=== PATIENT | male | born 1980 | race African-American/Black ===

== ENCOUNTER 2016-08-04 10:46 | Emergency (ER) | payer SELFPAY ==
[~2016-08-04] VITALS: Ht 182.9 cm; Wt 93.0 kg
[~2016-08-04 10:46] MED LIST: CHLO15MO2 PO; CYCL10TA2 PO; HYDR-79 PO; HYDR1TAB10 PO; IBUP200T43 PO; IBUP800T PO; LISI40TA PO; PENI250T2 PO; PENI500T PO; TRAM-29 PO; TRAM50TA PO
[2016-08-04 10:56] VITALS: BP 160/109
--- NOTE | 2016-08-04 16:42 | ED.ADGEN ---
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 Patient denies motor weakness loss of sensation. Review of Systems Review of Systems Review symptoms as prescribed. Allergies Allergies Allergies Coded Allergies Type Severity Reaction Last Updated Verified No Known Drug Allergies 01/01/15 No Physical Exam Physical Exam Constitutional: Well developed, well nourished, no acute distress, non-toxic appearance. [] HENT: Normocephalic, atraumatic, bilateral external ears normal, oropharynx moist, no oral exudates, nose normal. [] Eyes: PERRLA, EOMI, conjunctiva normal, no discharge. [] Neck: Normal range of motion, no tenderness, supple, no stridor. [] Cardiovascular:Heart rate regular rhythm, no murmur [] Lungs & Thorax: Bilateral breath sounds clear to auscultation [] Abdomen: Bowel sounds normal, soft, no tenderness, no masses, no pulsatile masses. [] Skin: Warm, dry, no erythema, no rash. [] Back: No midline Tenderness, bilateral paravertebral lower back pain, tenderness. Extremities: No tenderness, no cyanosis, no clubbing, ROM intact, no edema. [] Neurologic: Alert and oriented X 3, normal motor function, normal sensory function, no focal deficits noted. [] Psychologic: Affect normal, judgement normal, mood normal. [] Current Patient Data Vital Signs Vital Signs Date Time Temp Pulse Resp B/P Pulse Ox O2 Delivery O2 Flow Rate FiO2 08/04/16 10:56 97.9 102 20 99 Room Air EKG EKG [] Radiology/Procedures Radiology/Procedures [] Impressions: Exacerbation of chronic back pain Course & Med Decision Making Course & Med Decision Making Pertinent Labs and Imaging studies reviewed. (See chart for details) Courtesy work note provided. Blood pressure noted to be elevated 166/112. Patient does not take blood pressure today. No CP, SOB, leg swelling. ] Final Impression Final Impression 1. Acute exacerbation of chronic back pain 2. Hypertension 3. Medical non-compliance Problems: Dragon Disclaimer Dragon Disclaimer This electronic medical record was generated, in whole or in part, using a voice recognition dictation system. ZACH VALDEZ DO Aug 04, 2016 16:42
== END 2016-08-04 11:10 | disposition home or self-care (01) ==
LOC: ER 10:46
DX: G89.29 Other chronic pain (principal); M54.89 Other dorsalgia; I10 Essential (primary) hypertension; Z91.14 Patient's other noncompliance with medication regimen
CPT/HCPCS: 99281

== ENCOUNTER 2017-04-01 22:05 | Emergency (ER) | payer OTHER ==
[~2017-04-01] VITALS: Ht 182.9 cm; Wt 89.8 kg
[2017-04-01 22:05] VITALS: BP 171/111
[~2017-04-01 22:05] MED LIST changes: +CYCL-331 PO; -CYCL10TA2 PO; -IBUP800T PO; +IBUP800T19 PO; -PENI250T2 PO; +PENI250T85 PO; -TRAM-29 PO; +TRAM-48 PO
[2017-04-01] MEDS ORDERED: TRAM50TA PO (22:40)
[2017-04-01] MEDS ORDERED: METH-38 PO (22:40)
[2017-04-01] MEDS ORDERED: KETOROLAC 60 MG/2 ML VIAL. IM ONE (22:45)
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
== END 2017-04-01 22:45 | disposition home or self-care (01) ==
LOC: ER 22:05
DX: S33.5XXA Sprain of ligaments of lumbar spine, initial encounter (principal); S46.812A Strain of other muscles, fascia and tendons at shoulder and upper arm level, left arm, initial encounter; S43.492A Other sprain of left shoulder joint, initial encounter; I10 Essential (primary) hypertension; W22.8XXA Striking against or struck by other objects, initial encounter; Y93.89 Activity, other specified; Y99.8 Other external cause status; Y92.89 Other specified places as the place of occurrence of the external cause
CPT/HCPCS: 96372; 99283; J1885

== ENCOUNTER 2017-09-20 20:15 | Emergency (ER) | payer SELFPAY ==
[~2017-09-20] VITALS: Ht 182.9 cm; Wt 89.8 kg
[2017-09-20 20:15] VITALS: BP 172/109
[~2017-09-20 20:15] MED LIST changes: -IBUP200T43 PO; +IBUP200T44 PO; +METH-38 PO
--- NOTE | 2017-09-20 21:04 | PHYS DOC ---
Past History Past Medical History: Hypertension Additional Past Medical Histor: back pain Past Surgical History: Other Smoking: Non-smoker Alcohol Use: None Drug Use: None Adult General Chief Complaint Chief Complaint: SHOULDER INJURY HPI HPI 36-year-old male now presents emergency department complaining of left shoulder pain. He was lifting weights and strained his shoulder. He is concerned he may have a rotator cuff injury. No collarbone pain or tenderness or pain at the before meals distribution. Patient is able to use his elbow and wrist normally. No prior injury to the shoulder. Soft tissue tenderness Review of Systems Review of Systems Constitutional: Denies fever or chills [] Eyes: Denies change in visual acuity, redness, or eye pain [] HENT: Denies nasal congestion or sore throat [] Respiratory: Denies cough or shortness of breath [] Cardiovascular: No additional information not addressed in HPI [] GI: Denies abdominal pain, nausea, vomiting, bloody stools or diarrhea [] : Denies dysuria or hematuria [] Musculoskeletal: Denies back pain or joint pain [] Integument: Denies rash or skin lesions [] Neurologic: Denies headache, focal weakness or sensory changes [] Endocrine: Denies polyuria or polydipsia [] All other systems were reviewed and found to be within normal limits, except as documented in this note. Allergies Allergies Allergies Coded Allergies Type Severity Reaction Last Updated Verified codeine Allergy Intermediate 04/01/17 Yes Physical Exam Physical Exam Well-appearing patient no acute distress. No bony tenderness of left upper extremity. Soft tissue tenderness at left shoulder consistent with rotator cuff injury. Neurovascularly intact extremity with soft compartments Constitutional: Well developed, well nourished, no acute distress, non-toxic appearance. [] HENT: Normocephalic, atraumatic, bilateral external ears normal, oropharynx moist, no oral exudates, nose normal. [] Eyes: EOMI, conjunctiva normal, no discharge. [] Neck: Normal range of motion, no tenderness, supple, no stridor. [] Cardiovascular: No tachycardia Lungs & Thorax: Normal respiratory rate with no asymmetry of the chest wall excursion and no increased work of breathing Abdomen: Nondistended abdomen Skin: Warm, dry, no erythema, no rash. [] Back: Normal supple appearing neck Extremities: no cyanosis, no clubbing, ROM intact, no edema. [] Neurologic: Alert and oriented X 3, normal motor function, normal sensory function, no focal deficits noted. [] Psychologic: Affect normal, judgement normal, mood normal. [] Current Patient Data Vital Signs Vital Signs Date Time Temp Pulse Resp B/P (MAP) Pulse Ox O2 Delivery O2 Flow Rate FiO2 09/20/17 20:15 98.0 121 20 100 Room Air EKG EKG [] Radiology/Procedures Radiology/Procedures X-ray left shoulder unremarkable interpreted by me[] Course & Med Decision Making Course & Med Decision Making Pertinent Labs and Imaging studies reviewed. (See chart for details) Signs and symptoms consistent with rotator cuff injury. Sling applied. NSAIDs administered. Patient were to ice and avoid strenuous activity until follow-up with his doctor for reevaluation and referral to orthopedics and for MRI as needed. No further workup or treatment indicated at this time patient agrees with outpatient follow-up and strict return precautions given [] Dragon Disclaimer Dragon Disclaimer This electronic medical record was generated, in whole or in part, using a voice recognition dictation system. Departure Departure: Impression: Primary Impression: Injury of left rotator cuff Additional Impression: Shoulder pain, left Disposition: HOME, SELF-CARE Condition: GOOD Referrals: NON,STAFF (PCP) Patient Instructions: Rotator Cuff Injury Additional Instructions: It appears that you have suffered a rotator cuff injury of your left shoulder. Wear sling as needed for comfort but try to use her arm for light activity. Remove the sling to do gentle range of motion exercises multiple times a day. Over the next day or 2 apply ice as often as possible. Take ibuprofen 800 mg every 6 hours and Ultram one pill every 6 hours as needed for pain unrelieved by ibuprofen. Follow-up with your doctor in 5-7 days for reevaluation and referral for MRI and orthopedic referral if your symptoms persist and your doctor feels this is indicated. Problem Qualifiers FABIO ORTEGA MD September 20, 2017 21:04
[2017-09-20] MEDS ORDERED: START PACK - traMADol 1 STARTPACK TABLET PO ONE (21:15)
--- NOTE | 2017-09-21 08:00 | RAD ---
SHOULDER 2+V LEFT History: Injury Comparison: May 27, 2016 Findings: 3 views left shoulder submitted. No acute fracture or dislocation is identified. Impression: 1. No acute osseous abnormality is identified by radiographs. Electronically signed by: Naeem Dow MD (09/21/2017 7:57 AM) [id number]
== END 2017-09-20 21:17 | disposition home or self-care (01) ==
LOC: ER 20:15
DX: S46.092A Other injury of muscle(s) and tendon(s) of the rotator cuff of left shoulder, initial encounter (principal); I10 Essential (primary) hypertension; Z88.5 Allergy status to narcotic agent; X58.XXXA Exposure to other specified factors, initial encounter; Y93.89 Activity, other specified; Y99.8 Other external cause status; Y92.89 Other specified places as the place of occurrence of the external cause
CPT/HCPCS: 73030; 99284

== ENCOUNTER 2018-01-06 14:48 | Emergency (ER) | payer SELFPAY ==
[~2018-01-06] VITALS: Ht 182.9 cm; Wt 89.8 kg
--- NOTE | 2018-01-06 15:16 | PHYS DOC ---
Past History Past Medical History: Hypertension Additional Past Medical Histor: back pain Past Surgical History: Other Smoking: Non-smoker Alcohol Use: None Drug Use: None Adult General Chief Complaint Chief Complaint: KNEE INJURY HPI HPI Patient is a 37 year old who presents complaining of right knee injury. Patient states he was playing football and twisted his knee and felt pop in right knee with severe pain in his knee. Patient states the pain is 8/10 with rest and 10 over 10 with movement of his knee. Patient denies other injuries, focal neuro deficit, history of any problem. Review of Systems Review of Systems Constitutional: Denies fever or chills [] Eyes: Denies change in visual acuity, redness, or eye pain [] HENT: Denies nasal congestion or sore throat [] Respiratory: Denies cough or shortness of breath [] Cardiovascular: No additional information not addressed in HPI [] GI: Denies abdominal pain, nausea, vomiting, bloody stools or diarrhea [] : Denies dysuria or hematuria [] Musculoskeletal: Denies back pain, reports joint pain [] Integument: Denies rash or skin lesions [] Neurologic: Denies headache, focal weakness or sensory changes [] Endocrine: Denies polyuria or polydipsia [] All other systems were reviewed and found to be within normal limits, except as documented in this note. Current Medications Current Medications Current Medications Medications (Trade) Dose Ordered Sig/Sebastián Start Time Stop Time Status Last Admin Dose Admin Tramadol HCl (Ultram) 50 mg 1X ONCE 01/06/18 15:15 01/06/18 15:16 UNV Allergies Allergies Allergies Coded Allergies Type Severity Reaction Last Updated Verified codeine Allergy Intermediate 04/01/17 Yes Physical Exam Physical Exam Constitutional: Well developed, well nourished, mild distress, non-toxic appearance. [] HENT: Normocephalic, atraumatic Eyes: PERRLA, EOMI, conjunctiva normal, no discharge. [] Neck: Normal range of motion, no tenderness, supple, no stridor. [] Cardiovascular:Heart rate regular rhythm, no murmur [] Lungs & Thorax: Bilateral breath sounds clear to auscultation [] Skin: Warm, dry, no erythema, no rash. [] Back: No tenderness, no CVA tenderness. [] Extremities: Right knee without deformity or edema, tenderness in anterior side of knee with limited range of motion secondary to pain Neurologic: Alert and oriented X 3, normal motor function, normal sensory function, no focal deficits noted. [] Psychologic: Affect normal, judgement normal, mood normal. [] EKG EKG [] Radiology/Procedures Radiology/Procedures [][address] [id number] IMAGING REPORT Signed PATIENT: ÓSCAR MILAN ACCOUNT: [id number] : 1980 LOCATION: ER AGE: 37 SEX: M EXAM STATUS: REG ER ORD. PHYSICIAN: JUAN MANUEL CASTILLO MD REASON: injury PROCEDURE: KNEE RIGHT 4V History: Right lateral knee pain and swelling after injury today. Comparison: January 01, 2015. Findings: AP, lateral, oblique, and merchant views of the right knee. No acute fracture or dislocation is identified. 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 No joint effusion is identified. Impression: 1. No acute osseous traumatic injury identified. 2. Mild tricompartment degeneration. Electronically signed by: Jabari Elizabeth MD (01/06/2018 3:25 PM) [id number] DICTATED AND SIGNED BY: JABARI ELIZABETH MD DATE: 01/06/18 1524 CC: JUAN MANUEL CASTILLO MD; NON,STAFF ~ Course & Med Decision Making Course & Med Decision Making discharge: I've spoken with the patient and/or caregivers. I've explained the patient's condition, diagnosis and treatment plan based on information available to me at this time. I've answered the patient's and/or caregivers questions and addressed any concerns. The patient and/or caregivers have a good understanding the patient's diagnosis, condition and treatment plan as can be expected at this point. Vital signs have been stabilized. The patient's condition is stable for discharge from the emergency department. The patient will pursue further outpatient evaluation with her primary care provider or other designated consulting physician as outlined in the discharge instructions. Patient and/or caregivers are agreeable to this plan of care and follow-up instructions have been explained in detail. The patient and/or caregivers have received these instructions in written format and expressed understanding of these discharge instructions. The patient and her caregivers are aware that if any significant change in condition or worsening of symptoms should prompt him to immediately return to this of the closest emergency department. If an emergent department is not readily available I would encourage him to call 911. Elian Disclaimer Elian Disclaimer This electronic medical record was generated, in whole or in part, using a voice recognition dictation system. Departure Departure: Impression: Primary Impression: Right knee sprain Additional Impression: Uncontrolled hypertension Disposition: HOME, SELF-CARE (at 1555) Condition: STABLE Referrals: NON,STAFF (PCP) Patient Instructions: Hypertension, Knee Sprain Additional Instructions: Apply ice on the affected area Follow-up with your primary care physician in 3-5 days Return to ER if not getting better Scripts Ibuprofen (IBUPROFEN) 800 Mg Tablet 800 MG PO TID, #20 TAB Prov: JUAN MANUEL CASTILLO MD 01/06/18 Problem Qualifiers JUAN MANUEL CASTILLO MD Jan 06, 2018 15:16
--- NOTE | 2018-01-06 15:29 | RAD ---
History: Right lateral knee pain and swelling after injury today. Comparison: January 01, 2015. Findings: AP, lateral, oblique, and merchant views of the right knee. No acute fracture or dislocation is identified. 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 No joint effusion is identified. Impression: 1. No acute osseous traumatic injury identified. 2. Mild tricompartment degeneration. Electronically signed by: Jabari Elizabeth MD (01/06/2018 3:25 PM) [facility]
[2018-01-06] MEDS ORDERED: traMADol 50 MG TABLET PO ONE (15:30)
[2018-01-06] MEDS ORDERED: IBUP800T19 PO (15:36)
[2018-01-06 15:40] VITALS: BP 163/110
== END 2018-01-06 15:47 | disposition home or self-care (01) ==
LOC: ER 14:48
DX: S83.91XA Sprain of unspecified site of right knee, initial encounter (principal); I10 Essential (primary) hypertension; Z88.5 Allergy status to narcotic agent; X50.1XXA Overexertion from prolonged static or awkward postures, initial encounter; Y93.61 Activity, american tackle football; Y92.89 Other specified places as the place of occurrence of the external cause; Y99.8 Other external cause status
CPT/HCPCS: 73564; 99284

== ENCOUNTER 2018-12-05 18:27 | Emergency (ER) | payer SELFPAY ==
[~2018-12-05 18:27] MED LIST changes: +HYDR-1179 PO; -HYDR-79 PO
[2018-12-05] MEDS ORDERED: ACETAMINOPHEN 500 MG TABLET PO ONE (18:45)
[2018-12-05] MEDS ORDERED: CYCLOBENZAPRINE 10 MG TABLET. PO ONE (19:30)
[2018-12-05] MEDS ORDERED: IBUP600T16 PO (19:31)
[2018-12-05] MEDS ORDERED: CYCL-331 PO (19:31)
--- NOTE | 2018-12-05 19:31 | PHYS DOC ---
Past History Past Medical History: Hypertension Additional Past Medical Histor: back pain Past Surgical History: Other Smoking: Non-smoker Alcohol Use: None Drug Use: None Adult General Chief Complaint Chief Complaint: SHOULDER INJURY HPI HPI Patient is a 38 year old male who presents with complaint of left shoulder pain. The patient states that he was playing football when the injury occurred approximately 2-1/2 hours prior to arrival. The patient states that during a play, one of his teammates fumbled football. As he was trying to get to the ball, a defender came through and ran through his left arm as it was outstretched. This caused his arm to stretch posterior and a sudden violent motion. He states that he felt a tearing sensation to his left anterior shoulder and left upper chest. States that since the injury he has not been able to move much at the shoulder secondary to pain in the left upper chest and anterior shoulder. Denies any other injuries. States he took Motrin prior to arrival with not much relief in symptoms. States that he does feel a popping sensation when he attempts to move the left shoulder. Review of Systems Review of Systems Constitutional: Denies fever or chills [] Eyes: Denies change in visual acuity, redness, or eye pain [] HENT: Denies nasal congestion or sore throat [] Respiratory: Denies cough or shortness of breath [] Cardiovascular: Denies substernal chest pain or edema[] GI: Denies abdominal pain, nausea, vomiting, bloody stools or diarrhea [] : Denies dysuria or hematuria [] Musculoskeletal: Left shoulder pain, left pectoral pain[] Integument: Denies rash or skin lesions [] Neurologic: Denies headache, focal weakness or sensory changes [] All other systems were reviewed and found to be within normal limits, except as documented in this note. Current Medications Current Medications Current Medications Medications (Trade) Dose Ordered Sig/[facility] Start Time Stop Time Status Last Admin Dose Admin Acetaminophen (Tylenol) 1,000 mg 1X ONCE 12/05/18 18:45 12/05/18 18:49 DC 12/05/18 18:45 1,000 MG Allergies Allergies Allergies Coded Allergies Type Severity Reaction Last Updated Verified codeine Allergy Intermediate 04/01/17 Yes Physical Exam Physical Exam Constitutional: Alert, afebrile, appears in [id number] discomfort. [] HENT: Normocephalic, atraumatic, bilateral external ears normal, oropharynx moist, no oral exudates, nose normal. [] Eyes: PERRLA, EOMI, conjunctiva normal, no discharge. [] Neck: Normal range of motion, no tenderness, supple, no stridor. [] Cardiovascular:Heart rate regular rhythm, no murmur [] Lungs & Thorax: Bilateral breath sounds clear to auscultation [] Abdomen: Bowel sounds normal, soft, no tenderness, no masses, no pulsatile masses. [] Skin: Warm, dry, no erythema, no rash. [] Back: No tenderness, no CVA tenderness. [] Extremities: There is palpation along soft tissue anterior shoulder and along superior lateral portion of left pectoral muscle at both pectoralis major and pectoralis minor, patient's left upper extremity held abducted and internally rotated, pain with attempted passive adduction and external rotation no cyanosis, no clubbing, left elbow and forearm exam is normal. [] Neurologic: Alert and oriented X 3, normal motor function, normal sensory function, no focal deficits noted. [] Current Patient Data Vital Signs Vital Signs Date Time Temp Pulse Resp B/P (MAP) Pulse Ox O2 Delivery O2 Flow Rate FiO2 12/05/18 18:35 98.2 109 18 99 Room Air Lab Results Not performed EKG EKG Not performed[] Radiology/Procedures Radiology/Procedures 3 view left shoulder x-ray interpreted by me: No fractures, normal alignment, normal soft tissue[] Course & Med Decision Making Course & Med Decision Making Pertinent Labs and Imaging studies reviewed. (See chart for details) X-rays negative for fracture. I suspect rotator cuff injury as well as pectoralis muscle strain. Patient placed in left shoulder sling in the em ergency department. Treated with Tylenol and Flexeril. Prescribed ibuprofen and Flexeril for continued treatment at home. 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 Patient also provided with orthopedic surgery referral through [facility]. Advised follow-up within recommended timeframe of 1 week and return to the emergency department for any worsening symptoms. Patient was understanding and in agreement with treatment plan.[] Dragon Disclaimer Dragon Disclaimer This electronic medical record was generated, in whole or in part, using a voice recognition dictation system. Departure Departure: Impression: Primary Impression: Shoulder injury Additional Impression: Pectoralis muscle strain Disposition: HOME, SELF-CARE Condition: STABLE Referrals: Aubrey Verdin II, MD PCP,NO (PCP) Patient Instructions: Muscle Strain, Shoulder Pain Additional Instructions: Follow-up with orthopedic surgery in one week for reevaluation. Return to the emergency department for any worsening symptoms. Scripts Ibuprofen (IBUPROFEN) 600 Mg Tablet 600 MG PO Q6HRS PRN for PAIN, #30 TAB Prov: NELIDA BROWN MD 12/05/18 Cyclobenzaprine Hcl (CYCLOBENZAPRINE HCL) 10 Mg Tablet 1 TAB PO TID PRN for MUSCLE SPASMS, #30 TAB Prov: NELIDA BROWN MD 12/05/18 Problem Qualifiers Primary Impression: Shoulder injury Encounter type: initial encounter Laterality: left Qualified Codes: S49.92XA - Unspecified injury of left shoulder and upper arm, initial encounter Additional Impression: Pectoralis muscle strain Encounter type: initial encounter Qualified Codes: S29.011A - Strain of muscle and tendon of front wall of thorax, initial encounter NELIDA BROWN MD Dec 05, 2018 19:31
[2018-12-05 19:40] VITALS: BP 147/90
--- NOTE | 2018-12-06 05:15 | RAD ---
Three-view left shoulder radiographs 12/05/2018 CLINICAL HISTORY: Left shoulder injury. Pain. AP internal and external rotation and transscapular digital radiographs of the left shoulder were obtained. No fracture or dislocation of the left shoulder is seen. IMPRESSION: No fracture or dislocation of the left shoulder is seen. Electronically signed by: Luke Holbrook MD (12/06/2018 5:12 AM) [facility]
== END 2018-12-05 19:40 | disposition home or self-care (01) ==
LOC: ER 18:27
DX: S29.011A Strain of muscle and tendon of front wall of thorax, initial encounter (principal); S49.92XA Unspecified injury of left shoulder and upper arm, initial encounter; I10 Essential (primary) hypertension; Z88.5 Allergy status to narcotic agent; W51.XXXA Accidental striking against or bumped into by another person, initial encounter; Y93.61 Activity, american tackle football; Y92.89 Other specified places as the place of occurrence of the external cause; Y99.8 Other external cause status
CPT/HCPCS: 73030; 99284

== ENCOUNTER 2020-01-28 03:59 | Emergency (ER) | payer SELFPAY ==
[~2020-01-28] VITALS: Ht 182.9 cm; Wt 97.7 kg
[~2020-01-28 03:59] MED LIST changes: +IBUP600T16 PO
[2020-01-28 04:05] VITALS: BP 156/98
[2020-01-28] MEDS ORDERED: LISI-334 PO (04:18)
[2020-01-28] MEDS ORDERED: ACETAMINOPHEN 500 MG TABLET PO ONE (04:30)
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
[2020-01-28] MEDS ORDERED: START PACK - traMADol 1 STARTPACK TABLET PO ONE ×2 (05:04→05:30)
--- NOTE | 2020-01-28 06:07 | RAD ---
KNEE 3 VIEWS RIGHT Clinical Indication: Reason: blow to lateral knee / Spl. Instructions: / History: Comparison: None. Findings: There is no acute fracture or dislocation. There are tricompartmental marginal osteophytes. There is mild narrowing at the medial compartment. The patella is in anatomic position. There is no soft tissue abnormality. There is no significant joint effusion. IMPRESSION: No acute fracture. Electronically signed by: Luis Elizabeth MD (01/28/2020 6:04 AM) [facility]
== END 2020-01-28 05:15 | disposition home or self-care (01) ==
LOC: ER 03:59
DX: S83.91XA Sprain of unspecified site of right knee, initial encounter (principal); I10 Essential (primary) hypertension; Z88.5 Allergy status to narcotic agent; W22.8XXA Striking against or struck by other objects, initial encounter; Y93.89 Activity, other specified; Y92.89 Other specified places as the place of occurrence of the external cause; Y99.8 Other external cause status
CPT/HCPCS: 73564; 99284

== ENCOUNTER 2020-12-13 21:11 | Emergency (ER) | payer SELFPAY ==
[~2020-12-13] VITALS: Ht 182.9 cm; Wt 94.5 kg
[~2020-12-13 21:11] MED LIST changes: +LISI20TA18 PO; -LISI40TA PO; +LISI40TA6 PO
[2020-12-13 21:20] VITALS: BP 151/88
--- NOTE | 2020-12-13 21:28 | PHYS DOC ---
Past History Past Medical History: Hypertension Additional Past Medical Histor: back pain Past Surgical History: Other Additional Past Surgical Histo: repair fx jaw(20yrs ago);lt knee scoped; cyst rem from rt shoulder Smoking: Non-smoker Alcohol Use: None Drug Use: None Adult General HPI HPI Patient is a 40-year-old male who presents to the emergency department with right knee pain, 7 out of 10, sharp in nature after getting hit in the side of the leg while playing football and encouraged to come to the emergency department by career coach. Denies any other injuries. States that right after it happened he had the pain immediately. States he can walk but it causes discomfort. Denies any numbness/weakness/tingling. Review of Systems Review of Systems Review of systems otherwise unremarkable except noted in HPI Allergies Allergies Allergies Coded Allergies Type Severity Reaction Last Updated Verified codeine Allergy Intermediate 01/28/20 Yes Physical Exam Physical Exam Constitutional: Well developed, well nourished, no acute distress, non-toxic appearance. [] HENT: Normocephalic, atraumatic, Eyes: , conjunctiva normal, no discharge. [] Neck: Normal range of motion, no tenderness, supple, no stridor. [] Cardiovascular:Heart rate regular rhythm, no murmur [] Lungs & Thorax: Bilateral breath sounds clear to auscultation [] Back: No tenderness, Extremities: Mild generalized tenderness about the right knee with no obvious swellings, effusions, bruising or deformities. Patella appears intact. Neurovascular exam intact. Range of motion intact. Neurologic: Alert and oriented X 3, no focal deficits noted. [] Psychologic: Affect normal, judgement normal, mood normal. [] EKG EKG [] Radiology/Procedures Radiology/Procedures [] Heart Score C/O Chest Pain: No Risk Factors: Risk Factors: DM, Current or recent (<one month) smoker, HTN, HLP, family history of CAD, obesity. Risk Scores: Risk Factors: DM, Current or recent (<one month) smoker, HTN, HLP, family history of CAD, obesity. Course & Med Decision Making Course & Med Decision Making Patient is a 40-year-old male who presents with right knee pain Vital signs not concerning. Physical exam noted above. Patient stated he just took Tylenol ibuprofen before coming. Given ice pack. Given tramadol. Imaging with no acute osseous abnormalities. Symptoms suggestive of soft tissue injury. Placed in knee immobilizer and given crutches. Discussed all findings with patient. Advised on pain management. Advised to keep knee immobilizer on and use crutches as much as possible. Advised to follow-up with team doctor first thing Tuesday morning to update on ED visit and discuss need for MRI. Did return precautions to the ED. Patient grateful, verbalized understanding and agreed with plan of discharge. [] Dragon Disclaimer Dragon Disclaimer This electronic medical record was generated, in whole or in part, using a voice recognition dictation system. Departure Departure: Impression: Primary Impression: Knee pain Disposition: HOME / SELF CARE / HOMELESS Condition: GOOD Referrals: PCP,UNKNOWN (PCP) LUIS E MCKINNEY MD Patient Instructions: Knee Pain, RICE - Routine Care for Injuries Additional Instructions: Thank you for coming into the emergency department tonight and allowing us to take care of you. Please read all the attached information very carefully to go back to work some of the things we discussed. You can begin a Tylenol, ibuprofen and ice regimen as discussed. Please use your tramadol as needed for breakthrough pain. As discussed your x-rays did not show any broken bones or dislocations but it is likely you have a soft tissue injury. You are placed in a knee immobilizer and given crutches. Is important that you follow-up on Tuesday with your primary care physician to discuss your ED visit and need for MRI. Please come back to the ED with new or concerning symptoms as discussed. TRIP TURCIOS MD Dec 13, 2020 21:28
[2020-12-13] MEDS ORDERED: START PACK - traMADol 1 STARTPACK TABLET PO ONE (21:30)
--- NOTE | 2020-12-13 21:58 | RAD ---
Exam: Right knee 3 views INDICATION: Knee pain playing football TECHNIQUE: Frontal, lateral and oblique views of the right knee Comparisons: None FINDINGS: Bone mineralization is normal. No acute or healed fractures. Soft tissues are unremarkable. Joint spa cecilio are well-maintained. IMPRESSION: No acute osseous abnormality of the right knee Electronically signed by: Sylvester Nye MD (12/13/2020 9:55 PM) [facility]
== END 2020-12-13 22:10 | disposition home or self-care (01) ==
LOC: ER 21:11
DX: M25.561 Pain in right knee (principal); I10 Essential (primary) hypertension; Z88.5 Allergy status to narcotic agent
CPT/HCPCS: 29505; 73562; 99283